=== PATIENT | male | born 1990 | race Caucasian/White ===

== ENCOUNTER 2017-04-09 15:25 | Emergency (ER) | payer OTHER ==
[2017-04-09] MEDS: IBUPROFEN 600 MG TAB PO (19:06)
== END 2017-04-10 00:15 | disposition home or self-care (01) ==
LOC: FTE 04-10 00:15
DX: M54.2 Cervicalgia (principal); M54.5 Low back pain; M54.6 Pain in thoracic spine
CPT/HCPCS: 72072; 72100; 72125; 73550; 99284-25